=== PATIENT | male | born 2000 | race Hispanic/Latino ===

== ENCOUNTER 2022-02-22 19:08 | Emergency (ER) | payer OTHER ==
[~2022-02-22] VITALS: Ht 167.6 cm; Wt 91.2 kg
[2022-02-22] MEDS ORDERED: AZITHROMYCIN250 MG PO (20:07)
[2022-02-22] MEDS ORDERED: VENTOLIN HFA18 GM INH (20:07)
[2022-02-22] MEDS ORDERED: PREDNISONE20 MG PO (20:07)
[2022-02-22 20:33] VITALS: BP 142/74
== END 2022-02-22 20:33 | disposition home or self-care (01) ==
LOC: FSED 19:12
DX: J06.9 Acute upper respiratory infection, unspecified (principal); R50.9 Fever, unspecified; R05.9 Cough, unspecified
CPT/HCPCS: 83518; 87400; 99282

== ENCOUNTER 2022-03-02 18:55 | Emergency (ER) | payer OTHER ==
[~2022-03-02] VITALS: Ht 167.6 cm; Wt 91.2 kg
[~2022-03-02 18:55] MED LIST: AZITHROMYCIN250 MG PO; PREDNISONE20 MG PO; VENTOLIN HFA18 GM INH
== END 2022-03-02 20:10 | disposition home or self-care (01) ==
LOC: FSED 19:04
DX: S00.81XA Abrasion of other part of head, initial encounter (principal); S00.511A Abrasion of lip, initial encounter; W01.0XXA Fall on same level from slipping, tripping and stumbling without subsequent striking against object, initial encounter; Y93.01 Activity, walking, marching and hiking; Y92.89 Other specified places as the place of occurrence of the external cause
CPT/HCPCS: 99282

== ENCOUNTER 2024-10-26 19:45 | Emergency (ER) | payer SELFPAY ==
[~2024-10-26] VITALS: Ht 165.1 cm; Wt 83.9 kg
[2024-10-26] MEDS ORDERED: CEPHALEXIN 500 MG CAP PO SCH (20:15)
[2024-10-26] MEDS ORDERED: CEPHALEXIN500 MG PO (20:28)
[2024-10-26] MEDS ORDERED: CEPHALEXIN MONOHYDRATE 250 MG CAP ONE (20:39)
[2024-10-26] MEDS: IBUPROFEN 400 MG TAB PO STA (20:45)
[2024-10-26] MEDS: LIDOCAINE 1% W/EPINEPHRINE 20 ML VIAL INJ ONE (20:45)
[2024-10-26] MEDS: CEPHALEXIN 500 MG CAP PO ONE (20:47)
[2024-10-26 20:53] VITALS: PULSE 76; RESP 18; TEMP 98.3; O2SAT 98
== END 2024-10-26 20:53 | disposition home or self-care (01) ==
LOC: FSED 19:51
DX: L02.31 Cutaneous abscess of buttock (principal)
CPT/HCPCS: 99283

== ENCOUNTER 2025-05-07 19:01 | Emergency (ER) | payer SELFPAY ==
[~2025-05-07] VITALS: Ht 165.1 cm; Wt 83.9 kg
[~2025-05-07 19:01] MED LIST changes: +CEPHALEXIN500 MG PO
[2025-05-07 19:30] VITALS: PULSE 80; RESP 16; TEMP 98.4
[2025-05-07] MEDS ORDERED: IBUPROFEN600 MG PO (20:10)
[2025-05-07] MEDS ORDERED: CEPHALEXIN500 MG PO (20:10)
[2025-05-07 21:12] VITALS: BP 141/86; O2SAT 98
== END 2025-05-07 21:16 | disposition home or self-care (01) ==
LOC: FSED 19:14
DX: L05.01 Pilonidal cyst with abscess (principal)
CPT/HCPCS: 99284